=== PATIENT | male | born 1995 | race Native Hawaiian/Other Pacific Islander ===

== ENCOUNTER 2017-01-18 15:23 | Observation (INO) | payer BC, OTHER ==
[2017-01-18] MEDS ORDERED: Sodium Chloride 0.9% 1,000 ML IV STA (15:43)
[2017-01-18] MEDS ORDERED: Vancomycin 1gm in NS 250ml 1 GM/250 ML BAG IVPB STA (15:43)
--- NOTE | 2017-01-18 15:47 | ED PDOC ---
Arrival/HPI - General Chief Complaint: Abnormal Skin Integrity Time Seen by Provider: 01/18/17 15:30 Historian: Patient - History of Present Illness Narrative History of Present Illness (Text): 01/18/17 15:45 21 y/o male, no significant pmh, nkda, c/o rt. upper extremity pain with the redness x 1 week. Pt. stated that he was bitten by an insect about 1 week ago in [place]. Pt. stated that he has been experiencing pain and redness on the rt. upper extremity, no fever or chills, no numbness or tingling, no rash, no night sweat, no other medical or psychological complaints. Past Medical History - Provider Review Nursing Documentation Reviewed: Yes - Infectious Disease Hx of Infectious Diseases: None - Psychiatric Hx Depression: No Hx Emotional Abuse: No Hx Physical Abuse: No Hx Substance Use: No - Anesthesia Hx Anesthesia: No Hx Anesthesia Reactions: No Hx Malignant Hyperthermia: No - Suicidal Assessment Feels Threatened In Home Enviroment: No Family/Social History - Physician Review Nursing Documentation Reviewed: Yes Family/Social History: Unknown Family HX Smoking Status: Light Smoker < 10 Cigarettes Daily Hx Alcohol Use: Yes Frequency of alcohol use: Socially Hx Substance Use: No Hx Substance Use Treatment: No Allergies/Home Meds Allergies/Adverse Reactions: Allergies No Known Allergies Allergy (Verified 10/06/11 17:07) Home Medications: Home Meds Medication Instructions Recorded Confirmed No Known Home Med 10/06/11 10/06/11 Review of Systems - Review of Systems Constitutional: absent: Fatigue, Fevers Eyes: absent: Vision Changes ENT: absent: Hearing Changes Respiratory: absent: SOB, Cough Cardiovascular: absent: Chest Pain Gastrointestinal: absent: Abdominal Pain Skin: Rash, Cellulitis. absent: Pruritis, Skin Lesions, Laceration, Abscess, Ulcer Hemo/Lymphatic: Adenopathy. absent: Easy Bleeding, Easy Bruising Physical Exam Vital Signs Reviewed: Yes Vital Signs Temp Pulse Resp BP Pulse Ox 01/18/17 15:29 98.8 F 74 16 134/78 99 Temperature: Afebrile Blood Pressure: Normal Pulse: Regular Respiratory Rate: Normal Appearance: Positive for: Well-Appearing, Non-Toxic, Comfortable Pain Distress: Moderate Mental Status: Positive for: Alert and Oriented X 3 - Systems Exam Head: Present: Atraumatic, Normocephalic Pupils: Present: PERRL Extroacular Muscles: Present: EOMI Conjunctiva: Present: Normal Mouth: Present: Moist Mucous Membranes Neck: Present: Normal Range of Motion Respiratory/Chest: Present: Clear to Auscultation, Good Air Exchange. No: Respiratory Distress, Accessory Muscle Use Cardiovascular: Present: Regular Rate and Rhythm, Normal S1, S2. No: Murmurs Abdomen: Present: Normal Bowel Sounds. No: Tenderness, Distention, Peritoneal Signs Back: Present: Normal Inspection Upper Extremity: Present: Normal Inspection, Other (visible visible 2 insect bite larson noted on the rt. flexore forearm with redness streaking cellulitis on the medial aspect traveled up to the rt. upper inner humeral region with regional rt. axiallary lymphenapathy). No: Cyanosis, Edema Lower Extremity: Present: Normal Inspection. No: Edema Neurological: Present: GCS=15, Speech Normal, Motor Func Grossly Intact, Gait Normal, Memory Normal Skin: Present: Warm, Dry, Normal Color. No: Rashes Psychiatric: Present: Alert, Oriented x 3, Normal Insight, Normal Concentration Medical Decision Making ED Course and Treatment: 01/18/17 15:48 -labs/blood culture -IV vancomycin/toradol -RUE venuous doppler -Chest x-ray -EKG -Observe and reassess 01/18/17 18:04 -EKG:NSR @ 62 BPM, no ST elevation or depression, early repolarization on lead V3-V5, no T wave inversion. Pt has no chest pain or palpitation. -Chest xray: no active disease -RUE Venuous doppler: as per preliminary report, no acute DVT -Labs show no acute findings, pending blood culture -I will admit the patient for ID consult under Dr. Torres's service due to the extensive of the cellulitis and atypical presentation with much work up is needed. 01/18/17 18:08 -I spoke to Dr. Torres about the case, discussed about the labs/radiology studies in detail, agreed this needs full admission with request for DR. Quick for ID consults, med/surg floor -I discussed with DR. Duffy, he will put in the admission order. - Lab Interpretations Microbiology Results: Microbiology Results 01/18/17 16:15 Blood-Venous Blood Culture - Preliminary NO GROWTH AFTER 24 HOURS 01/18/17 16:00 Blood-Venous Blood Culture - Preliminary NO GROWTH AFTER 24 HOURS Lab Results: 01/18/17 16:25 01/18/17 16:25 Lab Results 01/18/17 16:25: WBC 5.2, RBC 5.27, Hgb 16.1, Hct 46.6, MCV 88.4, MCH 30.6, MCHC 34.5, RDW 12.7, Plt Count 281, MPV 10.6, Gran % 42.7 L, Lymph % (Auto) 41.9 H, [place] % (Auto) 11.5 H, Eos % (Auto) 3.1, Baso % (Auto) 0.8, Gran # 2.24, Lymph # 2.2, [place] # 0.6, Eos # 0.2, Baso # 0.04 01/18/17 16:25: Sodium 139, Potassium 4.3, Chloride 99, Carbon Dioxide 30, Anion Gap 14, BUN 16, Creatinine 1.0, Est GFR ( Amer) > 60, Est GFR (Non- Af Amer) > 60, Random Glucose 95, Calcium 9.6, Total Bilirubin 0.7, AST 40, ALT 39, Alkaline Phosphatase 61, Total Protein 7.9, Albumin 4.8, Globulin 3.2, Albumin/Globulin Ratio 1.5 I have reviewed the lab results: Yes Interpretation: No clinic. lab abnormalty - RAD Interpretation Radiology Orders: 01/18/17 15:44 DUPLEX UPPER EXTRM VEIN RIGHT [US] Stat 01/18/17 16:50 CHEST PORTABLE [RAD] Stat RUE Venuous doppler: as per preliminary report, no acute DVT Chest x-ray: no active disease Vapor Coater: Radiologist - EKG Interpretation EKG Interpretation (Text): 01/18/17 18:32 NSR @ 62 BPM, no ST elevation or depression, early repolarization on lead V3-V5 , no T wave inversion. Type: 12 lead EKG Comparison: Com.w/previous EKG - Medication Orders Current Medication Orders: Acetaminophen (Tylenol 325mg Tab) 650 mg PO Q6H PRN PRN Reason: pain or fever Sodium Chloride (Sodium Chloride 0.9%) 1,000 mls @ 100 mls/hr IV .Q10H [facility] Last Admin: 01/19/17 09:47 Dose: 100 mls/hr Vancomycin HCl (Vancomycin 1gm) 1 gm in 250 mls @ 167 mls/hr IVPB Q12 [facility] Last Admin: 01/19/17 09:47 Dose: 167 mls/hr Ondansetron HCl (Zofran Inj) 4 mg IVP Q6H PRN PRN Reason: Nausea/Vomiting Discontinued Medications Vancomycin HCl (Vancomycin 1gm) 1 gm in 250 mls @ 167 mls/hr IVPB STAT STA PRN Reason: Protocol Stop: 01/18/17 17:12 Last Admin: 01/18/17 16:41 Dose: 167 mls/hr Sodium Chloride (Sodium Chloride 0.9%) 1,000 mls @ 999 mls/hr IV .Q1H1M [facility] Stop: 01/18/17 16:43 Last Admin: 01/18/17 16:12 Dose: 999 mls/hr Vancomycin HCl (Vancomycin 1gm) 1 gm in 250 mls @ 167 mls/hr IVPB Q12H [facility] Ketorolac Tromethamine (Toradol) 30 mg IVP STAT STA Stop: 01/18/17 15:46 Last Admin: 01/18/17 16:21 Dose: 30 mg - PA / 3RD MATE / Resident Statement / has reviewed & agrees with the documentation as recorded. Disposition/Present on Arrival - Present on Arrival Any Indicators Present on Arrival: Yes History of DVT/PE: No History of Uncontrolled Diabetes: No Urinary Catheter: No History of Decub. Ulcer: No History Surgical Site Infection Following: None - Disposition Have Diagnosis and Disposition been Completed?: Yes Diagnosis: Axillary lymphadenopathy, Insect bite, Cellulitis Disposition: HOSPITALIZED Disposition Time: 18:46 Patient Plan: Admission Patient Problems: Current Active Problems Problem Status Onset Axillary lymphadenopathy Acute Cellulitis Acute Insect bite Acute Condition: GOOD
[2017-01-18 16:40] LABS: BASO # 0.04 K/mm3 (0.0-2.0); BASO % 0.8 % (0.0-3.0); EOS # 0.2 (0.0-0.7); EOS % 3.1 % (1.5-5.0); GRAN # 2.24 (1.4-6.5); GRAN % 42.7 % (50.0-68.0); HEMATOCRIT 46.6 % (42.0-52.0); LYMPH # 2.2 (1.2-3.4); LYMPH % 41.9 % (22.0-35.0); MEAN CELL VOLUME 88.4 fl (80.0-105.0); MEAN CORPUSCULAR HEMOGLOBIN 30.6 pg (25.0-35.0); MEAN CORPUSCULAR HGB CONC 34.5 g/dl (31.0-37.0); MEAN PLATELET VOLUME 10.6 fl (7.0-11.0); MONO # 0.6 (0.1-0.6); MONO % 11.5 % (1.0-6.0); RED CELL DISTRIBUTION WIDTH 12.7 % (11.5-14.5); WHITE BLOOD COUNT 5.2 10^3/ul (4.5-11.0)
[2017-01-18 17:26] LABS: ALB/GLOB RATIO 1.5 (1.1-1.8); ALKALINE PHOSPHATASE 61 U/L (38-126); ALT/SGPT 39 U/L (7-56); AST/SGOT 40 U/L (17-59); BILIRUBIN,TOTAL 0.7 mg/dL (0.2-1.3); BLOOD UREA NITROGEN 16 mg/dL (7-21); CALCIUM 9.6 mg/dL (8.4-10.5); CARBON DIOXIDE 30 mmol/L (21-33); CHLORIDE 99 mmol/L (95-110); GFR AFRICAN-AMERICAN > 60; GLUCOSE,RANDOM 95 mg/dL (70-110); POTASSIUM 4.3 mmol/L (3.6-5.0); SODIUM 139 mmol/L (132-148); TOTAL PROTEIN 7.9 g/dL (5.8-8.3)
--- NOTE | 2017-01-18 20:22 | US ---
PROCEDURE: Right upper extremity venous US CLINICAL HISTORY: Arm pain and swelling Evaluate for deep venous thrombosis. PHYSICIAN(S): Saul Conde M.D FINDINGS: The visualized rightinternal jugular vein is sonographically normal and compressible. No evidence of obstruction or thrombus is seen. The visualized segments of the right subclavian vein are patent with normal waveforms. No sonographic evidence of obstruction or thrombosis is seen. The visualized deep venous system of the proximal right upper extremity is sonographically normal and compressible. IMPRESSION: 1. No sonographic evidence for deep venous thrombosis in the visualized segments of the right upper extremity.
[2017-01-18 20:40] VITALS: BMI 25.7
--- NOTE | 2017-01-19 08:39 | RAD ---
HISTORY: medical clerance COMPARISON: No prior. FINDINGS: LUNGS: No acute infiltrate or pleural effusion identified bilaterally. PLEURA: No significant pleural effusion identified, no pneumothorax apparent. CARDIOVASCULAR: Normal. OSSEOUS STRUCTURES: No significant abnormalities. VISUALIZED UPPER ABDOMEN: Normal. OTHER FINDINGS: None. IMPRESSION: No acute cardiopulmonary is identified.
[2017-01-19] MEDS ORDERED: Sodium Chloride 0.9% 1,000 ML IV SCH (09:30)
[2017-01-19] MEDS ORDERED: Vancomycin 1gm in NS 250ml 1 GM/250 ML BAG IVPB SCH (09:45)
[2017-01-19] MEDS: Vancomycin 1gm in NS 250ml 1 GM/250 ML BAG IVPB SCH ×2 (09:47→23:23)
[2017-01-19] MEDS ORDERED: Vancomycin 1 g Inj IVPB SCH (10:00)
--- NOTE | 2017-01-19 11:28 | CARD ---
APPROVED REPORT EKG Measurement Heart [id number] <Conclusion> Normal sinus rhythm ST elevation, probably due to early repolarization Borderline ECG
[2017-01-19 16:41] VITALS: O2SAT 100
--- NOTE | 2017-01-19 18:02 | HP ---
HISTORY OF PRESENT ILLNESS: This 21-year-old male was examined at his bedside. His case was reviewed with himself, family and nursing. The patient presented to the [facility] last evening with the chief complaint of right upper extremity arm pain, redness and erythema for the past several days. He was on vacation with family in [place], [place]. He felt he was bitten by a mosquito, was scratching his skin because of pruritus and noticed clinical cellulitis. In the emergency room, he was evaluated and started on parenteral vancomycin and the patient states today the erythema swelling and pain has improved. The patient denies any significant past medical history. He states he is on no prescription medication. SOCIAL HISTORY: He is social drinker, social smoker, and denies any IV drug misuse. ALLERGIES: HE DENIES ANY ALLERGIES TO MEDICATIONS. He states he has had no previous surgery and denies any active medical problems. REVIEW OF SYSTEMS: HEAD: On head review, no headache or seizures. EYES: On eye review, no change in visual acuity. EARS: On ear review, no hearing loss. THROAT: On throat review, no swallowing difficulty. NECK: On neck review, no stiffness. CARDIAC: Review, no chest pain,no history of hypertension. PULMONARY: No cough. No hemoptysis. GASTROINTESTINAL: No nausea. No vomiting. No diarrhea, no melena. GENITOURINARY: No dysuria. SKIN: As per HPI. VASCULAR: No claudication. PSYCHOLOGIC: No anxiety. NEUROLOGIC: No knowledge of stroke. FAMILY HISTORY: Noncontributory. PHYSICAL EXAMINATION: VITAL SIGNS: At present temperature 98.2, respirations 18, pulse 67 and blood pressure 127/84 with a pulse ox of 99% on room air. HEENT: Head is normocephalic and atraumatic. Eyes: No icterus. Ears: Clear. Throat: Non-injected. NECK: Supple. HEART: Regular. S1 and S2. No pathological rubs, murmurs or gallops. LUNGS: Clear to auscultation. ABDOMEN: Soft and nontender. No palpable organomegaly. No rebound. No guarding. No tenderness. EXTREMITIES: Right upper extremity has some warmth and erythema on his forearm. The previous streaking that was noted in the emergency room is now resolved. He has full range of motion of his right upper extremity. VASCULAR: Legs are warm to touch. PSYCHOLOGICAL: Alert and oriented x3. NEUROLOGICAL: Grossly intact. LABORATORY DATA: White count 5,200, hemoglobin 16.1, hematocrit 46.6, and platelets 281,000. Sodium 139, K 4.3, chloride 99, bicarbonate 30, BUN 16, creatinine 1.0, and random blood sugar was 95. All liver function testing was normal including bilirubin 0.7, AST 40, ALT 39, and alkaline phosphatase 61. IMPRESSION: This is a 21-year-old male with right upper extremity cellulitis. PLAN: At present is to continue heart healthy diet, blood cultures have been received and results are pending. The patient continues on 0.9 saline at 100 mL per hour. He is receiving vancomycin 1 g IV q. 12. There is an order for Tylenol 650 mg p.o. q. 6 hours p.r.n. pain and he is awaiting infectious disease consultation with Dr. Julio Quick regarding choice of treatment and duration. All of this was explained in detail to the patient, his family, and nurse at the bedside and ultimate plan will be for discharged to home and cleared by infectious disease with followup with his PMD. Tigist Torres MD [facility]
--- NOTE | 2017-01-19 18:34 | CP.PCM.CON ---
History of Present Illness - History of Present Illness History of Present Illness: Infectious Disease Consultation: January 19, 2017 21 yo male with multiple insect bites? to the arm and had streaking on the right arm and slight pain on extension of the right arm on initial admission. Currently on Vancomycin for antibiotic treatment intravenously. The patient appears comfortable. No major complaints at this time. Supportive care. 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 PMHx: none PSHx: none Allergies: NKDA Social Hx: 5 cig/day for the past year Social EtOH Marijuana use occasionally Active Medications Acetaminophen (Tylenol 325mg Tab) 650 mg PO Q6H PRN PRN Reason: pain or fever Sodium Chloride (Sodium Chloride 0.9%) 1,000 mls @ 100 mls/hr IV .Q10H [facility] Last Admin: 01/19/17 09:47 Dose: 100 mls/hr Vancomycin HCl (Vancomycin 1gm) 1 gm in 250 mls @ 167 mls/hr IVPB Q12 [facility] Last Admin: 01/19/17 09:47 Dose: 167 mls/hr Ondansetron HCl (Zofran Inj) 4 mg IVP Q6H PRN PRN Reason: Nausea/Vomiting Family Hx: none given ROS: no fevers, chills, nausea, vomiting, diarrhea, headaches, dizziness, chest pain , abdominal pain, melena, hematuria, hematemesis, hematochezia, depression, anxiety, vision loss, hearing loss, loss of consciousness. Past Patient History - Infectious Disease Hx of Infectious Diseases: None - Past Social History Smoking Status: Light Smoker < 10 Cigarettes Daily - CARDIAC Hx Cardiac Disorders: No - PULMONARY Hx Respiratory Disorders: No - NEUROLOGICAL Hx Neurological Disorder: No - HEENT Hx HEENT Problems: No - RENAL Hx Chronic Kidney Disease: No - ENDOCRINE/METABOLIC Hx Endocrine Disorders: No - HEMATOLOGICAL/ONCOLOGICAL Hx Blood Disorders: No - INTEGUMENTARY Hx Dermatological Problems: No - MUSCULOSKELETAL/RHEUMATOLOGICAL Hx Falls: No - GASTROINTESTINAL Hx Gastrointestinal Disorders: No - GENITOURINARY/GYNECOLOGICAL Hx Genitourinary Disorders: No - PSYCHIATRIC Hx Psychophysiologic Disorder: No - SURGICAL HISTORY Hx Surgeries: No - ANESTHESIA Hx Anesthesia: No Hx Anesthesia Reactions: No Hx Malignant Hyperthermia: No Meds Allergies/Adverse Reactions: Allergies Allergy/AdvReac Type Severity Reaction Status Date / Time No Known Allergies Allergy Verified 10/06/11 17:07 - Medications Medications: Current Medications Acetaminophen (Tylenol 325mg Tab) 650 mg PO Q6H PRN PRN Reason: pain or fever Sodium Chloride (Sodium Chloride 0.9%) 1,000 mls @ 100 mls/hr IV .Q10H [facility] Last Admin: 01/19/17 09:47 Dose: 100 mls/hr Vancomycin HCl (Vancomycin 1gm) 1 gm in 250 mls @ 167 mls/hr IVPB Q12 [facility] Last Admin: 01/19/17 09:47 Dose: 167 mls/hr Ondansetron HCl (Zofran Inj) 4 mg IVP Q6H PRN PRN Reason: Nausea/Vomiting Physical Exam - Constitutional Appears: Non-toxic, No Acute Distress - Head Exam Head Exam: ATRAUMATIC, NORMOCEPHALIC - Eye Exam Eye Exam: EOMI, PERRL - ENT Exam ENT Exam: Mucous Membranes Moist, Normal External Ear Exam, TM's Normal Bilaterally - Neck Exam Neck exam: Positive for: Full Rom, Normal Inspection - Respiratory Exam Respiratory Exam: Clear to Auscultation Bilateral, NORMAL BREATHING PATTERN. absent: Rales, Rhonchi, Wheezes - Cardiovascular Exam Cardiovascular Exam: REGULAR RHYTHM, RRR, +S1, +S2 - GI/Abdominal Exam GI & Abdominal Exam: Normal Bowel Sounds, Soft. absent: Distended, Tenderness - Extremities Exam Additional comments: two areas of bug bites on forearm and medial elbow. - Neurological Exam Neurological exam: Alert, CN II-XII Intact, Normal Gait, Oriented x3 - Psychiatric Exam Psychiatric exam: Normal Affect, Normal Mood - Skin Additional comments: As above. Results - Vital Signs Recent Vital Signs: Last Vital Signs Temp 98.2 F 01/19/17 16:00 Pulse 57 L 01/19/17 16:00 Resp 20 01/19/17 16:00 BP 123/80 01/19/17 16:00 Pulse Ox 100 01/19/17 16:00 - Labs Result Diagrams: 01/18/17 16:25 01/18/17 16:25 Assessment & Plan - Assessment and Plan (Free Text) Assessment: 21 yo male with cellulitis of the right arm likely secondary to bug bites with tracking up the arm. The patient has had significant improvement overnight. On IV Vancomycin currently. If arm continues to improve, I would consider use of either Bactrim DS 1 tab BID or Clindamycin 300mg PO q8hrs for 10-14 days of treatment at home. Supportive care. At this time, the patient looks very good. Thank you for allowing me to participate in the care of the patient, we will follow with you.
[2017-01-20 08:56] VITALS: BP 130/80; PULSE 73; RESP 18; TEMP 98.1
[2017-01-20] MEDS: Vancomycin 1gm in NS 250ml 1 GM/250 ML BAG IVPB SCH (10:05)
--- NOTE | 2017-01-20 16:05 | PN ---
DATE: 01/20/2017 SUBJECTIVE: This 21-year-old male was examined at beside in the presence of his nurse Huan and his father Hemant. I have discussed this case in detail with Dr. Julio Quick from Infectious Disease who is scheduled to see the patient later today. Of note, the patient denies any fever or chills. His right arm cellulitis is markedly improved on IV vancomycin and he has full range of motion of his arm. PHYSICAL EXAMINATION VITAL SIGNS: Temperature 98.1, respirations 18, pulse 73, and blood pressure 130/80 with a pulse ox of 100% on room air. HEENT: Head is normocephalic and atraumatic. Eyes: No icterus. NECK: Supple. HEART: Regular. S1 and S2. LUNGS: Clear. ABDOMEN: Soft. EXTREMITIES: No edema. Right arm cellulitis markedly improved. There is no streaking. There is no obvious erythema. Full range of motion of right upper extremity. SKIN: Without ulcer. VASCULAR: Legs are warm to touch. PSYCHOLOGICAL: Alert and oriented x3. NEUROLOGICAL: Intact. LABORATORY DATA: White count 5200, hemoglobin 16.1, hematocrit 46.6, and platelets 281,000. Sodium 139, K 4.3, chloride 99, bicarbonate 30, BUN 16, creatinine 1.0, random blood sugar 95. All liver function testing was normal including bilirubin 0.7, AST 40, ALT 39, and alkaline phosphatase 61. Blood culture shows no growth at 24 hours. IMPRESSION: This is a 21-year-old male with improving right arm cellulitis. Currently on vancomycin 1 g IV q. 12 and 0.9 saline at 100 mL per hour. As discussed with Dr. Julio Quick, he will evaluate the patient later this afternoon and as discussed with patient and father Hemant, he will be deciding timing of discharge and discharge oral antibiotic, which will either be Bactrim 1 tablet p.o. b.i.d. or clindamycin 300 mg p.o. q.8 hours for 10-14 days of treatment at home. This was discussed in detail with the patient, his father Hemant and with nurse Huan present and patient is medically cleared for discharge when cleared by Dr. Julio Quick from Infectious Disease. He has been advised to followed up with his primary care physician and to return to [facility] ER for any change in signs and symptoms. Tigist Torres MD [facility] # [id number] [facility]
--- NOTE | 2017-01-20 16:12 | CP.PCM.PN ---
Subjective - Date & Time of Evaluation Date of Evaluation: 01/20/17 Time of Evaluation: 15:15 - Subjective Subjective: Infectious Disease Follow Up: January 20, 2017 21 yo male with multiple insect bites? to the arm and had streaking on the right arm and slight pain on extension of the right arm on initial admission. Currently on Vancomycin for antibiotic treatment intravenously. The patient appears comfortable. No major complaints at this time. Supportive care. No other senior living medical issues. Most of the patient's symptoms have resolved. Objective - Vital Signs/Intake and Output Vital Signs (last 24 hours): Temp Pulse Resp BP Pulse Ox 98.1 F 73 18 130/80 100 01/20/17 06:00 01/20/17 06:00 01/20/17 06:00 01/20/17 06:00 01/20/17 06:00 Intake and Output: 01/20/17 01/20/17 06:59 18:59 Intake Total 7980 800 Output Total 0 Balance 7980 800 - Medications Medications: Current Medications Acetaminophen (Tylenol 325mg Tab) 650 mg PO Q6H PRN PRN Reason: pain or fever Sodium Chloride (Sodium Chloride 0.9%) 1,000 mls @ 100 mls/hr IV .Q10H [facility] Last Admin: 01/19/17 09:47 Dose: 100 mls/hr Vancomycin HCl (Vancomycin 1gm) 1 gm in 250 mls @ 167 mls/hr IVPB Q12 [facility] Last Admin: 01/20/17 10:05 Dose: 167 mls/hr Ondansetron HCl (Zofran Inj) 4 mg IVP Q6H PRN PRN Reason: Nausea/Vomiting - Constitutional Appears: Non-toxic, No Acute Distress - Head Exam Head Exam: ATRAUMATIC, NORMOCEPHALIC - Eye Exam Eye Exam: EOMI, PERRL Pupil Exam: NORMAL ACCOMODATION, PERRL - ENT Exam ENT Exam: Mucous Membranes Moist, Normal External Ear Exam, TM's Normal Bilaterally - Neck Exam Neck Exam: Full ROM, Normal Inspection - Respiratory Exam Respiratory Exam: Clear to Ausculation Bilateral, NORMAL BREATHING PATTERN. absent: Rales, Rhonchi, Wheezes - Cardiovascular Exam Cardiovascular Exam: REGULAR RHYTHM, RRR, +S1, +S2 - GI/Abdominal Exam GI & Abdominal Exam: Soft, Normal Bowel Sounds. absent: Distended, Tenderness - Extremities Exam Extremities Exam: Full ROM, Normal Inspection Additional comments: two areas of bug bites on forearm and medial elbow. - Neurological Exam Neurological Exam: Alert, Awake, CN II-XII Intact, Oriented x3 - Psychiatric Exam Psychiatric exam: Normal Affect, Normal Mood - Skin Skin Exam: Intact, Normal Color Assessment and Plan - Assessment and Plan (Free Text) Assessment: 21 yo male with cellulitis of the right arm likely secondary to bug bites with tracking up the arm. The patient has had significant improvement overnight. On IV Vancomycin currently. If arm continues to improve, I would consider use of either Bactrim DS 1 tab BID or Clindamycin 300mg PO q8hrs for 10-14 days of treatment at home. Supportive care. At this time, the patient looks very good. He can be sent home. Thank you for allowing me to participate in the care of the patient, we will follow with you.
--- NOTE | 2017-01-22 00:43 | DS ---
FINAL DIAGNOSIS: Right upper arm cellulitis, improved. DISCHARGED MEDICATIONS: Prescribed by Dr. Julio Quick, infectious disease, Bactrim double strength 1 tablet p.o. b.i.d. #14, no refill. SUMMARY: This is a 21-year-old male who was admitted to the [facility] with right arm cellulitis. He was fully cultured and had no growth in his blood cultures at 48 hours. He was seen in consultation by Dr. Julio Quick, who agreed with IV vancomycin while in hospital and then switched the patient to Bactrim double strength 1 tablet p.o. b.i.d. #14 tablets no refill at the time of discharge. PHYSICAL EXAMINATION: VITAL SIGNS: The patient when discharged had a temperature of 98.1, respirations 18, pulse 73, blood pressure 130/80, and pulse ox of 100% on room air. EXTREMITIES: The right arm cellulitis was dramatically improved. LABORATORY DATA: Showed white count 5200, hemoglobin 16.1, hematocrit 46.6 and platelets 281,000. Chemistry showed sodium 139, K 4.3, chloride 99, bicarb 30, BUN 16, creatinine 1.0, and random blood sugar of 95. All liver function testing is normal including bilirubin 0.7, AST 40, ALT 39, alk phos 61. Microbiology showed two blood cultures with no growth at 48 hours. The patient was discharged to home to the care of his family. He was advised to follow up with his PMD and to return [facility] for any further change in signs and symptoms. Tigist Torres MD [facility]
== END 2017-01-20 18:44 | disposition home or self-care (01) ==
LOC: ED 15:23 → INTOOBSV 18:10 → OBSVTOIN 18:10 → ERH 18:10 → 3RSO 20:25
PROVIDERS: ADMIT Internal Medicine; ATTEND Internal Medicine
DX: L03.113 Cellulitis of right upper limb (principal); W57.XXXA Bitten or stung by nonvenomous insect and other nonvenomous arthropods, initial encounter
CPT/HCPCS: 71010; 80053; 85025; 87040; 93005; 93971; 96374; 96375; 99282; G0378; J1885; J7040